=== PATIENT | female | born 1970 | race Caucasian/White ===

== ENCOUNTER → 2016-10-29 16:10 | Outpatient (CLI) | payer BC ==
[~2016-10-29 16:10] MED LIST: HYDROCODONE-APA1 TAB PO
[2016-12-02 13:04] VITALS: BMI 29.6
== END | disposition home or self-care (01) ==
LOC: D.MAMMO 08:30
DX: Z12.31 Encounter for screening mammogram for malignant neoplasm of breast (principal)

== ENCOUNTER → 2016-11-19 14:40 | Outpatient (CLI) | payer BC ==
[2016-12-02 13:04] VITALS: BMI 29.6
== END | disposition home or self-care (01) ==
LOC: D.MRI 14:40
DX: M51.36 Other intervertebral disc degeneration, lumbar region (principal)

== ENCOUNTER 2016-12-02 05:35 | Inpatient (IN) | payer BC ==
[2016-12-01 15:02] LABS: BASOPHILS 0.1 % (0.0-2.0); HEMATOCRIT 40.3 % (36.0-48.0); HEMOGLOBIN 13.4 g/dL (12-16); IMMATURE GRANULOCYTES 0.3 % (0-5); LYMPHOCYTES 21.5 % (15-50); MCH 31.1 pg (26.0-34.0); MCHC 33.3 g/dL (31.0-37.0); MCV 93.5 fL (80.0-100.0); MEAN PLATELET VOLUME 9.7 fL (7.4-10.4); MONOCYTES 7.4 % (2-11); NEUTROPHILS 69.7 % (40-80); PLATELET COUNT 285 10x3/uL (130-400); RBC 4.31 10x6/uL (4.00-5.40); RDW 12.7 % (11.5-14.5); WBC 6.9 10x3/uL (4.8-10.8)
[2016-12-01 15:10] LABS: CALC OSMOLALITY 280 mosm/kg (275-300); CALCIUM 9.2 mg/dL (8.5-10.1); CHLORIDE - SERUM 102 mmol/L (98-107); CREATININE - SERUM 0.7 mg/dL (0.6-1.3); GLUCOSE 111 mg/dL (74-106); POTASSIUM - SERUM 3.7 mmol/L (3.5-5.1); SODIUM 140 mmol/L (136-145); UREA NITROGEN 15 mg/dL (7-18); eGFR NON AFRICAN AMERICAN > 90 mL/min (90-120)
[2016-12-01 15:12] LABS: APPEARANCE CLEAR (CLEAR); COLOR YELLOW (YELLOW)
[2016-12-01 15:13] LABS: BILIRUBIN NEGATIVE (NEGATIVE); GLUCOSE NEGATIVE (NEGATIVE); KETONE NEGATIVE (NEGATIVE); LEUKOCYTE ESTERASE 2+ (NEGATIVE); NITRITE NEGATIVE (NEGATIVE); PROTEIN NEGATIVE (NEGATIVE); SPECIFIC GRAVITY 1.025 (1.005-1.020); UROBILINOGEN NORMAL (NORMAL)
[2016-12-01 15:17] LABS: WHITE CELLS - URINE 0-5 /hpf (0-5)
[2016-12-01 15:19] LABS: BACTERIA MODERATE /hpf (NONE SEEN); EPITHELIAL CELLS 0-5 /hpf (0-5); MUCUS <1+ /lpf (NONE SEEN); RED CELLS - URINE 0-5 /hpf (0-5)
[2016-12-02] VITALS (11 sets, daily range): BP systolic 88–109; BP diastolic 44–76; Ht 160 cm; Wt 75.9 kg
[~2016-12-02] VITALS: Ht 160 cm; Wt 75.9 kg
--- NOTE | ~2016-12-02 | DS ---
PATIENT:TORIE TRENT :68 MEDICAL RECORD: [id number] DISCHARGE SUMMARY ADMISSION DATE: 12/02/16 DISCHARGE DATE: 12/05/16 DATE OF ADMISSION: 12/02/2016 CHIEF COMPLAINT: Back pain. PRIMARY PROCEDURE: L5-S1 laminectomy. HOSPITAL COUSRSE AND TREATMENT: This 46-year-old female tolerated the above surgery without complications. Postoperatively, she received Ancef as a postop medication. Her pain was controlled with p.o. hydrocodone. Incision is clean, dry and intact. She moved all extremities equally. DISCHARGE DESTINATION: Home. FOLLOWUP: Within 10-14 days for wound check. She has been instructed to call should she have any problems. ACTIVITY: Ambulation as tolerated. No lifting greater than 4 pounds. TRANSINT:[id number] Voice Confirmation ID: [id number] DOCUMENT ID: [id number] Dictated By: SIMONE CABRERA I have interviewed/examined the above patient and agree with these documented findings. POPEYE BAUTISTA MD CC: [id number] DICTATION DATE: 12/31/16 0938 DATAPOWER CONSULTANT: 12/31/16 1100 DIS IN 12/05/16 [facility] [address] [place] [address]
--- NOTE | 2016-12-02 11:50 | NUR ---
RECEIVED TO ROOM
--- NOTE | 2016-12-02 11:50 | NUR ---
RECEIVED TO ROOM 2208 AT THIS TIME. VITAL SIGNS STABLE FOR PATIENT. FAMILY AT BEDSIDE. INCISION TO BACK WITH DRESSING C/D/I. SCD'S ON AND IN WORKING ORDER. ASSESSMENT AND HISTORY OBTAINED PER FLOWSHEET. DENIES PAIN AT THIS TIME. IV TO RIGHT HAND PATENT. CALL LIGHT IN REACH, SRX3 WITH BED IN LOWEST POSITION AND WHEELS LOCKED. DENIES NEEDS AT PRESENT. WILL CONTINUE WITH PLAN OF CARE.
--- NOTE | 2016-12-02 12:02 | NUR ---
NO NUMBNESS OR TINGLING NOTED EQUAL STRENGHTS BILATERALLY LOWER EXTREMETIES
--- NOTE | 2016-12-02 12:45 | NUR ---
PRN ZOFRAN ADMINISTERED PER ORDER FOR PT'S C/O NAUSEA WITHOUT EMESIS. DENIES PAIN AT THIS TIME. FAMILY REMAINS AT BEDSIDE. WILL CONTINUE WITH PLAN OF CARE.
--- NOTE | 2016-12-02 13:59 | NUR ---
Patient Name: TORIE TRENT Admission Status: Elective Accout number: [id number] Admission Date: 12-02-2016 : 1970 Admission Diagnosis: Attending: CANELO Current LOS: 1 Anticipated DC Date: 12-04-2016 Planned Disposition: Home Primary Insurance: [employer] [facility] Discharge Planning Comments: CM MET WITH PATIENT REGARDING D/C NEEDS AND PLANS. PATIENT STATED SHE LIVES WITH HER SPOUSE (SONNY) AND HE WILL DRIVE HER HOME AT DISCHARGE. PATIENT STATED THEY ARE 6 STEPS W/RAILS TO ENTER HOME AND NO STAIRS INSIDE. PATIENT STATED SHE IS INDEPENDENT WITH HER CARE AND HAS A WALKER AT HOME IF NEEDED. PATIENTS PCP IS DR. VALENZUELA AND PHARMACY IS [facility] ON [address] [place] [address]. PATIENT DENIES NEEDS FOR HOME HEALTH. CM WILL CONTINUE TO FOLLOW PATIENT WITH D/C NEEDS AND PLANS. PCP DR. BIANCA PYLE [address] [place] [address] [phone] SONNY (SPOUSE) [phone] [employer]: Milla Nam Is the patient Alert and Oriented? Yes 0 * How many steps to enter\exit or inside your home? 6 W/RAILS 0 * PCP DR. VALENZUELA 0 * Pharmacy [facility] ON [address] [place] [address] 0 * Preadmission Environment Home with Family 0 * ADLs Independent 0 * Equipment Walker 0 * List name and contact numbers for known caregivers / representatives who currently or will assist patient after discharge: SONNY (SPOUSE) [phone] 0 * Community resources currently utilized None 0 * Additional services required to return to the preadmission environment? Yes 0 * Can the patient safely return to the preadmission environment? Yes 0 * Has this patient been hospitalized within the prior 30 days at any hospital? No 0 Grand Total: 0
[2016-12-02 14:44] LABS: BASOPHILS 0 % (0.0-2.0); EOSINOPHILS 0 % (0-7); HEMOGLOBIN 11.1 g/dL (12-16); IMMATURE GRANULOCYTES 0.2 % (0-5); LYMPHOCYTES 3.5 % (15-50); MCH 30.8 pg (26.0-34.0); MCHC 32.6 g/dL (31.0-37.0); MCV 94.4 fL (80.0-100.0); MEAN PLATELET VOLUME 9.7 fL (7.4-10.4); MONOCYTES 2.6 % (2-11); NEUTROPHILS 93.7 % (40-80); PLATELET COUNT 247 10x3/uL (130-400); RDW 12.7 % (11.5-14.5)
[2016-12-02 15:00] LABS: CALC OSMOLALITY 285 mosm/kg (275-300); CALCIUM 8.2 mg/dL (8.5-10.1); CARBON DIOXIDE 25.5 mmol/L (21.0-32.0); CHLORIDE - SERUM 107 mmol/L (98-107); CREATININE - SERUM 0.7 mg/dL (0.6-1.3); GLUCOSE 131 mg/dL (74-106); POTASSIUM - SERUM 3.8 mmol/L (3.5-5.1); SODIUM 142 mmol/L (136-145); UREA NITROGEN 14 mg/dL (7-18); eGFR NON AFRICAN AMERICAN > 90 mL/min (90-120)
--- NOTE | 2016-12-02 15:14 | NUR ---
SCHEDULED MEDICATIONS ADMINISTERED AT THIS TIME WELL PRN NORCO FOR PAIN. ADMINISTERED ONE TAB INSTEAD OF TWO AT PT'S REQUEST. DENIES FURTHER NEEDS AT THIS TIME. SIGNIFICANT OTHER AT BEDSIDE. CALL LIGHT IN REACH, WILL CONTINUE WITH PLAN OF CARE.
--- NOTE | 2016-12-02 19:30 | NUR ---
PT RECEIVED SITTING UP IN BED VISITING WITH MULTIPLE FAMILY MEMBERS AT BED SIDE. ALERT AND ORIENTED X4. O2 @ 2L VIA NC IN PLACE. BREATH SOUNDS CLEAR BILATERALLY. ABD SOFT AND NONTENDER UPON PALPATION. BOWEL SOUNDS ACTIVE IN ALL FOUR QUADRANTS. TABOR CATHETER IN PLACE, CLEAR YELLOW RETURN NOTED. PT DENIES NEEDS AT THIS TIME. CALL LIGHT AND H2O IN PT REACH. BED IN LOW POSITION. SIDE RAILS UP X2. SCD'S ON.
[2016-12-03 01:00] VITALS: BP 93/55
--- NOTE | 2016-12-03 04:06 | NUR ---
PATIENT SLEEPING SUPINE IN BED. HOB 30 DEGREES. RR EVEN AND UNLABORED. 0 S/S OF DISTRESS. FAMILY AT BEDSIDE. CALL LIGHT WITHIN REACH.
[2016-12-03 06:48] VITALS: BP 111/57
--- NOTE | 2016-12-03 07:10 | NUR ---
PATIENT IN BED WITH EYES CLOSED RESTING QUIETLY AT THIS TIME. IV INTACT. CALL LIGHT WITHIN REACH.
--- NOTE | 2016-12-03 07:15 | NUR ---
REPORT RECEIVED FROM TINNING MACHINE SET UP OPERATOR NURSE. CALL LIGHT IN REACH.
[2016-12-03 07:54] VITALS: BP 108/65
--- NOTE | 2016-12-03 08:26 | NUR ---
ASSESSMENT COMPLETED. SCDs TO BLE. AM MEDS MEDS ADMINISTERED. NORCO PO BUT PATIENT ONLY WANTED HALF OF ONE. TABOR CLAMPED FOR URINE SPECIMEN. IV SL. FAMILY IN ROOM. CALL LIGHT IN REACH. WILL CONTINUE WITH PLAN OF CARE.
--- NOTE | 2016-12-03 10:05 | NUR ---
UNABLE TO OBTAIN URINE SAMPLE BECAUSE CLAMP WAS TAKEN OFF OF TABOR CATH TUBING.
[2016-12-03 11:33] VITALS: BP 103/65
--- NOTE | 2016-12-03 12:11 | NUR ---
URINE SPECIMEN COLLECTED FROM TABOR CATH USING ASEPTIC TECHNIQUE. SAMPLE SENT TO LAB.
[2016-12-03 12:47] LABS: APPEARANCE CLEAR (CLEAR); BILIRUBIN NEGATIVE (NEGATIVE); COLOR YELLOW (YELLOW); GLUCOSE NEGATIVE (NEGATIVE); KETONE NEGATIVE (NEGATIVE); LEUKOCYTE ESTERASE TRACE (NEGATIVE); NITRITE NEGATIVE (NEGATIVE); PROTEIN TRACE mg/dL (NEGATIVE); SPECIFIC GRAVITY 1.015 (1.005-1.020); UROBILINOGEN NORMAL (NORMAL)
[2016-12-03 12:48] LABS: BACTERIA NONE SEEN /hpf (NONE SEEN); EPITHELIAL CELLS 0-5 /hpf (0-5); RED CELLS - URINE 0-5 /hpf (0-5); WHITE CELLS - URINE 0-5 /hpf (0-5)
--- NOTE | 2016-12-03 14:09 | NUR ---
BRACE PLACED ON PATIENT PER TRENA EMPLOYEE AFTER DRSG WAS CHANGED.
--- NOTE | 2016-12-03 14:30 | NUR ---
TABOR CATH REMOVED WITH TIP INTACT PER STUDENT NURSE AND INSTRUCTOR.
--- NOTE | 2016-12-03 16:20 | NUR ---
DENIES NEEDS AT THIS TIME. CALL LIGHT IN REACH.
[2016-12-03 16:32] VITALS: BP 112/62
--- NOTE | 2016-12-03 17:55 | NUR ---
ASSISTED TO SIDE OF BED AND ASSISTED WITH STANDING UP. PATIENT'S PAIN HAS GONE UP TO A 10. NORCO AND NICOLAS PO. FIRST NORCO DROPPED ON FLOOR AND WITNESSED BY PATIENT AND . ASSISTED BACK TO BED.
--- NOTE | 2016-12-03 18:45 | NUR ---
NO CHANGES IN INITIAL ASSESSMENT. CALL LIGHT IN REACH. STATES PAIN IN NOW ONLY A 2. AT BEDSIDE. WILL CONTINUE WITH PLAN OF CARE.
[2016-12-03 19:00] VITALS: BP 90/52
--- NOTE | 2016-12-03 20:00 | NUR ---
PT RECEIVED SITTING LAYING IN BED, VISITING WITH MULTIPLE FAMILY MEMBERS. NO S/S OF DISTRESS NOTED AT THIS TIME. PT IS ALERT AND ORIENTED X4. RESPIRATIONS EVEN AND UNLABORED. PT HAS NOT YET VOIDED SINCE REMOVAL OF TABOR. IV TO RIGHT HAND, CURRENTLY SALINE LOCKED NOTED AT THIS TIME. PT STATES PAIN IS A 2 AT THIS TIME, DENIES NEEDS. CALL LIGHT AND H2O IN PT REACH. BED IN LOW POSITION. SIDE RAILS UP X2.
--- NOTE | 2016-12-03 22:00 | NUR ---
PT STATES VOIDING WITH NO PROBLEMS X1.
--- NOTE | 2016-12-04 02:00 | NUR ---
PT IN BED WITH NO DISTRESS. RESPIRATIONS ARE EVEN AND UNLABORED. SIDE RAILS X 2. BED LOW. CALL LIGHT IN REACH.
--- NOTE | 2016-12-04 07:25 | NUR ---
PATIENT RECEIVED ALERT IN LOW [place] POSITION. RESPIRATIONS EVEN AND UNLABORED. SIDE RAILS UP X2. BED IN LOW POSITION. CALL LIGHT IN REACH. FAMILY PRESENT. DENIES NEEDS.
--- NOTE | 2016-12-04 08:14 | NUR ---
ALERT IN BED WITH FAMILY PRESENT. NO SIGNS OF DISTRESS NOTED. SCHEDULED MEDICATION ADMINISTERED. DENIES FURTHER NEEDS. SIDE RAILS UP X2. BED IN LOW POSITION. CALL LIGHT IN REACH.
[2016-12-04 08:40] VITALS: BP 110/67
--- NOTE | 2016-12-04 08:59 | NUR ---
C/O NAUSEA AND PAIN /10. ZOFRAN AND NORCO PER PRN ORDERS. NO FURTHER NEEDS. SIDE RAILS UP X2. BED IN LOW POSITION. CALL LIGHT IN REACH.
--- NOTE | 2016-12-04 11:45 | NUR ---
ALERT IN BED VISITING WITH GUESTS. NO SIGNS OF DISTRESS NOTED. RATES PAIN 2/10. STATES NAUSEA IS BETTER. NO NEEDS VOICED. SIDE RAILS UP X2. BED IN LOW POSITION. CALL LIGHT IN REACH.
[2016-12-04 12:34] VITALS: BP 110/69
--- NOTE | 2016-12-04 14:35 | NUR ---
ALERT IN BED. NO SIGNS OF DISTRESS NOTED. FAMILY PRESENT. RATES PAIN 5/10. SIDE RAILS UP X2. BED IN LOW POSITION. CALL LIGHT IN REACH.
--- NOTE | 2016-12-04 15:45 | NUR ---
UP AMBULATING IN HALLWAY WITH FAMILY. NO SIGNS OF DISTRESS NOTED. WILL CONTINUE TO MONITOR.
[2016-12-04 16:34] VITALS: BP 107/63
--- NOTE | 2016-12-04 18:00 | NUR ---
ALERT IN BED WATCHING TV. NO SIGNS OF DISTRESS NOTED. DENIES NEEDS. SIDE RAILS UP X2. BED IN LOW POSITION. CALL LIGHT IN REACH.
--- NOTE | 2016-12-04 19:49 | NUR ---
PATIENT RESTING IN BED WITH GUESTS AT BEDSIDE AND REQUESTED PAIN MEDICATION WITH HER 2100 MEDS. BED IN LOWEST POSITION AND CALL LIGHT WITHIN REACH. ENCOURAGED PATIENT TO CALL IF SHE HAS FURTHER NEEDS.
[2016-12-04 21:36] VITALS: BP 95/55
--- NOTE | 2016-12-05 07:30 | NUR ---
PATIENT RECEIVED ALERT IN LOW [place] POSITION. RESPIRATIONS EVEN AND UNLABORED. FAMILY PRESENT. DENIES NEEDS. SIDE RAILS UP X3. BED IN LOW POSITION. CALL LIGHT IN REACH.
[2016-12-05 07:53] VITALS: BP 113/69
--- NOTE | 2016-12-05 08:35 | NUR ---
PATIENT ALERT IN BED WITH FAMILY PRESENT. SCHEDULED MEDICATION ADMINISTERED. SIDE RAILS UP X2. BED IN LOW POSITION. CALL LIGHT IN REACH. DENIES NEEDS.
--- NOTE | 2016-12-05 10:40 | NUR ---
ALERT IN BED WITH FAMILY PRESENT. NO SIGNS OF DISTRESS NOTED. DRESSING TO LOWER BACK SURGICAL SITE CHANGED. 9 YOGESH INTACT. NO REDNESS, INFLAMMATION OR DRAINAGE NOTED. NEW BORDERED GAUZE PLACED OVER INCISION
--- NOTE | 2016-12-05 11:15 | NUR ---
UP AMBULATING IN HALLWAY WITH FAMILY. NO SIGNS OF DISTRESS NOTED.
[2016-12-05 12:36] VITALS: BP 112/72
--- NOTE | 2016-12-05 13:30 | NUR ---
IV TO RIGHT HAND D/C WITH CATH TIP INTACT. SITE COVERED WITH GAUZE AND BANDAID. D/C TEACHING AND WRITTEN PRESCRIPTION PROVIDED. DENIES QUESTIONS
--- NOTE | 2016-12-05 14:04 | NUR ---
PATIENT D/C HOME WITH FAMILY. TRANSFERRED DOWNSTAIRS VIA WHEELCHAIR WITH STAFF
--- NOTE | 2016-12-20 12:27 | OP ---
PATIENT NAME: TORIE TRENT MEDICAL RECORD: [id number] :68 LOCATION:D.MS [id number] ADMISSION DATE:12/02/16 SURGEON: POPEYE ACKERMAN MD DATE OF OPERATION: 12/02/2016 DIAGNOSIS: L4-L5 and L5-S1 degenerative disc disease with nerve root compression and segmental instability. PROCEDURE: 1. L4-L5 and L5-S1 facetectomy and radical discectomy. 2. L4-L5 and L5-S1 transforaminal lumbar interbody fusion. 3. L4, L5, and S1 pedicle fixation and instrumentation. 4. L4, L5, and S1 posterolateral fusion with autologous bone plus hydroxyapatite soaked with bone marrow aspirate. 5. C-arm imaging and localization in the operating room. SURGEON: Popeye Ackerman MD TIRE SERVICE TECHNICIAN: None. ESTIMATED BLOOD LOSS: 150 cc. SUMMARY: The patient was taken to the operating room and after an adequate level of general anesthetic, was prepped and draped on gel pads in a prone position in the operating room. Following this, localization was carried out with a spinal needle and the adipose tissue in the back and a C-arm fluoroscope to localize the placement of the incision. An incision was then made to the left of the spinous processes of L4, L5 and S1 with a 10 blade after infiltrating with 1:400,000 of epinephrine and 0.5% lidocaine. Dissection was carried out down to the lumbodorsal fascia. The muscular attachments to the spinous processes of L4, L5 and S1 were then divided with cutting cautery, a Hernandez elevator was then used to remove the muscular attachments to the facet joints on the left side. Following this, facetectomy was performed with an Adson and Leksell rongeur at L4-L5 and L5-S1 and the bone fragments were retained to be used in the bone mill for use in the fusion. When this was completed, a laminectomy was performed at L4-L5 and L5-S1 using a Cloward punch, exposing the neural elements. Dissection was carried out underneath the traversing nerve root and inferior to the exiting nerve root, exposing the annulus at L4-L5 and L5-S1. The osteophyte located inferiorly was then removed with an 8-mm osteotome. A pituitary was used to remove the bone fragments and the portions of the annulus after this maneuver. Following this, a series of disc space scrapers were used in the interspaces to remove the disc material and disc material was completely removed from the L4-L5 and L5-S1 interspace with pituitaries and upbiting pituitaries as well as curettes. After completing this, a trial was used to determine that an 11-mm Tritanium cage would best fit in the interspace at L4-L5. This cage was then selected using a 23 mm in length cage because the patient was fairly small. The cage was then packed with autologous bone. Autologous bone was also placed in the disc space using a bone funnel and then the cage was tapped into place medially and anteriorly. When this had been completed, the L5-S1 space was measured at 7 mm after scraping and cleaning the disc space of disc material and cartilaginous material. The 7-mm cage was packed using a 23 mm cage again and inserted into the interspace and tapped into position anteriorly and medially. Concluding this, pedicle screws were then placed in the pedicles on the left side at L4, L5 and S1 using a Jamshidi needle to penetrate the pedicle and then inserting a K-wire into the OPERATIVE REPORT [id number] TORIE TRENT vertebral body at L4, L5 and S1 on the left. Bone marrow was aspirated and this was used with the autologous bone and the hydroxyapatite to make a material to encourage posterolateral fusion. The pedicles were then tapped with a 4.5 mm tap and a C-arm fluoroscope was used throughout this procedure to determine the proper placement of pedicle and into the vertebral body. A 5.5 x 45 mm screws were then placed in the pedicles of L4 and L5 and then a 6.5 x 35 mm screw was placed in the sacrum. All the screws were ES2 screws with the flanges and were all applied with an MIS technique through the fascia. Following this, a 70-mm shant was then selected with a lordotic curve and inserted with an MIS technique using the Dials instrumentation into the ES2 screws and then the cap locks were screwed down on the flanges down to the shant and all were given a hand tightening. A C-arm image was then made anteriorly and laterally to determine that everything was in good position. With this being the case, the screws were then torqued to the appropriate level and then the flanges were removed from the heads of the screws. The wound was then irrigated with an antibiotic solution thoroughly and the posterolateral fusion was performed with the autologous bone plus the hydroxyapatite material. Following this, the wound was irrigated with antibiotic solution and the fascia was closed with 2-0 Dexon, the subcutaneous tissue with 2-0 Dexon, the superficial subcutaneous tissue with 3-0 Dexon and the skin was finally closed with skin cheri. No drain was placed as there was no significant bleeding. The patient tolerated this procedure well and was taken to recovery in stable condition. TRANSINT:[id number] Voice Confirmation ID: [id number] DOCUMENT ID: [id number] POPEYE ACKERMAN MD at 1227 CC: [id number] DICTATION DATE: 12/02/16 110 VP LEGAL AFFAIRS: 12/02/16 1352 DIS IN 12/05/16 [facility] [id number] [place] [address]
== END 2016-12-05 14:04 | disposition home or self-care (01) | DRG 460 ==
LOC: D.OPS 05:35 → D.MS 08:46 → D.OPS 10:58 → D.MS 12-05 14:04
PROVIDERS: ADMIT Neurological Surgery
PROC: 0SG30A1 (ICD-10-PCS; 2016-12-02)
PROC: 0ST20ZZ Resection of Lumbar Vertebral Disc, Open Approach (ICD-10-PCS; 2016-12-02)
PROC: 0ST40ZZ Resection of Lumbosacral Disc, Open Approach (ICD-10-PCS; 2016-12-02)
PROC: 0SG00A1 (ICD-10-PCS; principal; 2016-12-02 07:30)
DX: M51.36 Other intervertebral disc degeneration, lumbar region (principal); M51.37 Other intervertebral disc degeneration, lumbosacral region; M53.2X6 Spinal instabilities, lumbar region; M53.2X7 Spinal instabilities, lumbosacral region; M25.78 Osteophyte, vertebrae

== ENCOUNTER → 2016-12-31 08:35 | Outpatient (CLI) | payer BC ==
[2016-12-02 13:04] VITALS: BMI 29.6
== END | disposition home or self-care (01) ==
LOC: D.RAD 08:30
DX: M43.26 Fusion of spine, lumbar region (principal)

== ENCOUNTER → 2017-02-25 08:26 | Outpatient (CLI) | payer BC ==
[2016-12-02 13:04] VITALS: BMI 29.6
== END | disposition home or self-care (01) ==
LOC: D.RAD 08:26
DX: Z48.811 Encounter for surgical aftercare following surgery on the nervous system (principal)

== ENCOUNTER → 2017-12-02 21:54 | Outpatient (CLI) | payer BC ==
[2016-12-02 13:04] VITALS: BMI 29.6
== END | disposition home or self-care (01) ==
LOC: D.MAMMO 13:30
DX: Z12.31 Encounter for screening mammogram for malignant neoplasm of breast (principal)

== ENCOUNTER → 2018-05-04 13:01 | Outpatient (CLI) | payer BC ==
[2016-12-02 13:04] VITALS: BMI 29.6
[2018-05-04 14:01] LABS: BASOPHILS 0.2 % (0-2); EOSINOPHILS 1.5 % (0-7); HEMOGLOBIN 13.4 g/dL (12-16); IMMATURE GRANULOCYTES 0.2 % (0-5); MCH 31.2 pg (26.0-34.0); MCHC 33.5 g/dL (31.0-37.0); MCV 93.2 fL (80.0-100.0); MEAN PLATELET VOLUME 9.6 fL (7.4-10.4); MONOCYTES 7.6 % (2-11); NEUTROPHILS 69.5 % (40-80); PLATELET COUNT 265 10x3/uL (130-400); RBC 4.29 10x6/uL (4.00-5.40); RDW 12.6 % (11.5-14.5); WBC 6.6 10x3/uL (4.8-10.8)
[2018-05-04 15:06] LABS: ERYTHROCYTE SEDIMENTATION RATE 31 mm/hr (0-20)
== END | disposition home or self-care (01) ==
LOC: D.CT 13:01
PROVIDERS: Internal Medicine Gastroenterology
DX: R10.9 Unspecified abdominal pain (principal); R14.3 Flatulence; R14.0 Abdominal distension (gaseous)

== ENCOUNTER → 2018-06-02 14:59 | Outpatient (CLI) | payer BC ==
[2016-12-02 13:04] VITALS: BMI 29.6
[2018-06-02 15:29] LABS: BASOPHILS 0.2 % (0-2); EOSINOPHILS 1.2 % (0-7); HEMATOCRIT 42.2 % (36.0-48.0); HEMOGLOBIN 14.4 g/dL (12-16); IMMATURE GRANULOCYTES 0.2 % (0-5); MCH 31.3 pg (26.0-34.0); MCHC 34.1 g/dL (31.0-37.0); MCV 91.7 fL (80.0-100.0); MEAN PLATELET VOLUME 9.6 fL (7.4-10.4); MONOCYTES 7.9 % (2-11); NEUTROPHILS 76.5 % (40-80); PLATELET COUNT 248 10x3/uL (130-400); RDW 12.6 % (11.5-14.5); WBC 9.4 10x3/uL (4.8-10.8)
[2018-06-02 16:33] LABS: ERYTHROCYTE SEDIMENTATION RATE 10 mm/hr (0-20)
== END | disposition home or self-care (01) ==
LOC: D.CT 14:59
PROVIDERS: Internal Medicine Gastroenterology
DX: R10.9 Unspecified abdominal pain (principal); R14.3 Flatulence; R14.0 Abdominal distension (gaseous); Z87.19 Personal history of other diseases of the digestive system

== ENCOUNTER → 2018-06-06 10:45 | Outpatient (CLI) | payer BC ==
[2016-12-02 13:04] VITALS: BMI 29.6
[2018-06-06 11:42] LABS: CALC OSMOLALITY 275 mosm/kg (275-300); CALCIUM 9.3 mg/dL (8.5-10.1); CARBON DIOXIDE 26.1 mmol/L (21.0-32.0); CHLORIDE - SERUM 104 mmol/L (98-107); CREATININE - SERUM 0.8 mg/dL (0.6-1.3); GLUCOSE 95 mg/dL (74-106); POTASSIUM - SERUM 3.8 mmol/L (3.5-5.1); SODIUM 139 mmol/L (136-145); UREA NITROGEN 6 mg/dL (7-18); eGFR NON AFRICAN AMERICAN 81 mL/min (90-120)
== END | disposition home or self-care (01) ==
LOC: D.LAB 10:45
PROVIDERS: Internal Medicine Gastroenterology
DX: R30.0 Dysuria (principal)

== ENCOUNTER → 2018-10-27 07:59 | Outpatient (CLI) | payer BC ==
[2016-12-02 13:04] VITALS: BMI 29.6
== END | disposition home or self-care (01) ==
LOC: D.US 07:59
DX: R10.9 Unspecified abdominal pain (principal)

== ENCOUNTER → 2018-12-07 08:42 | Outpatient (CLI) | payer BC ==
[2016-12-02 13:04] VITALS: BMI 29.6
== END | disposition home or self-care (01) ==
LOC: D.MAMMO 08:42 → D.NM 08:42 → D.MAMMO 09:30 → D.NM 12-08 09:30
PROVIDERS: ATTEND Internal Medicine Gastroenterology
DX: R10.13 Epigastric pain (principal)

== ENCOUNTER 2018-12-08 19:00 | Outpatient (CLI) | payer BC ==
[2016-12-02 13:04] VITALS: BMI 29.6
== END 2018-12-08 23:59 | disposition home or self-care (01) ==
LOC: D.MAMMO 19:00
PROVIDERS: ATTEND Internal Medicine Gastroenterology
DX: Z12.31 Encounter for screening mammogram for malignant neoplasm of breast (principal)

== ENCOUNTER 2018-12-28 06:55 | Day surgery (SDC) | payer BC ==
[2018-12-26 16:36] LABS: BASOPHILS 0.6 % (0-2); EOSINOPHILS 5.4 % (0-7); HEMATOCRIT 38.9 % (36.0-48.0); HEMOGLOBIN 13.2 g/dL (12-16); LYMPHOCYTES 31.2 % (15-50); MCH 31.4 pg (26.0-34.0); MCHC 33.9 g/dL (31.0-37.0); MCV 92.4 fL (80.0-100.0); MEAN PLATELET VOLUME 9.7 fL (7.4-10.4); NEUTROPHILS 54.8 % (40-80); PLATELET COUNT 281 10x3/uL (130-400); RBC 4.21 10x6/uL (4.00-5.40); RDW 12.7 % (11.5-14.5); WBC 5.2 10x3/uL (4.8-10.8)
[2018-12-26 16:46] LABS: CALC OSMOLALITY 280 mosm/kg (275-300); CALCIUM 9.3 mg/dL (8.5-10.1); CARBON DIOXIDE 24.6 mmol/L (21.0-32.0); CHLORIDE - SERUM 106 mmol/L (98-107); CREATININE - SERUM 0.7 mg/dL (0.6-1.3); GLUCOSE 102 mg/dL (74-106); POTASSIUM - SERUM 3.7 mmol/L (3.5-5.1); SODIUM 141 mmol/L (136-145); UREA NITROGEN 13 mg/dL (7-18); eGFR NON AFRICAN AMERICAN > 90 mL/min (90-120)
[2018-12-28 07:10] VITALS: BP 120/73; BMI 32.4
[2018-12-28] MEDS ORDERED: HYDROCODON-ACE1 EA10 PO (09:43)
--- NOTE | 2019-01-03 14:40 | OP ---
PATIENT NAME: TORIE TRENT MEDICAL RECORD: [id number] :68 LOCATION:D.OPS ADMISSION DATE: SURGEON: CRISTIAN POWERS MD DATE OF OPERATION: 12/28/2018 PREOPERATIVE DIAGNOSIS: Biliary dyskinesia. POSTOPERATIVE DIAGNOSIS: Biliary dyskinesia. PROCEDURE: Laparoscopic cholecystectomy. SURGEON: Cristian Powers MD REPORT OF PROCEDURE: The patient's abdomen was prepped and draped in sterile fashion. A cutdown was made on the superior aspect of the umbilicus, 0 Vicryls were placed in the fascia bilaterally and the fascia was incised with 15-blade. I then bluntly entered the peritoneal cavity and placed a 12-mm Julia port. Under direct visualization, a 5-mm trocar was placed in the epigastrium and 2 more 5-mm trocars were placed in the right subcostal region. The gallbladder was grasped and elevated. The cystic artery and cystic duct were dissected free and these were clipped proximally and distally and ligated in standard fashion. The gallbladder was taken off the liver bed using electrocautery and placed into the right upper quadrant. Any bleeding from the liver bed was then treated with electrocautery. We irrigated out the right upper quadrant and assured there was no sign of any bleeding or bile leakage. At this point, the ports and insufflation were then removed and the gallbladder was taken out through the umbilicus. The umbilical fascia was closed with interrupted 0 Vicryls times 3. The wounds were then irrigated out with normal saline, infused with 10 mL of 0.25% Marcaine with epinephrine. The skin incisions were all closed with subcutaneous 5-0 Monocryl and dressed appropriately. COMPLICATIONS: None. CONDITION: Stable. ANESTHESIA: General endotracheal and local. BLOOD LOSS: Minimal. TRANSINT:[id number] Voice Confirmation ID: [id number] DOCUMENT ID: [id number] CRISTIAN POWERS MD at 1440 CC: JOANIE SIMMONS MD [id number] DICTATION DATE: 12/28/18 0948 IT PROFESSIONAL: 12/28/18 1150 [facility] 12/28/18 [facility] [address] [place] [address]
== END 2018-12-28 11:30 | disposition home or self-care (01) ==
LOC: D.OPS 06:55
PROVIDERS: ATTEND Surgery
DX: K82.4 Cholesterolosis of gallbladder (principal); Z01.812 Encounter for preprocedural laboratory examination

== ENCOUNTER → 2019-07-31 07:50 | Outpatient (CLI) | payer BC ==
[~2019-07-31 07:50] MED LIST changes: +HYDROCODON-ACE1 EA10 PO
--- NOTE | 2019-08-03 15:28 | ST ---
PATIENT:TORIE TRENT MEDICAL RECORD: [id number] SEX: F LOCATION:[facility] ORDER #: ADMISSION DATE: 07/31/19 AGE OF PATIENT: 49 REFERRING PHYSICIAN: INTERPRETING PHYSICIAN: JUAN LUIS ESCOBAR MD DATE OF SERVICE: 07/31/2019 PROCEDURE: Nuclear stress testing. INDICATION: Chest pain. She was exercised on standard Alexsander protocol for 8 minutes achieving 85% maximum target heart rate response with 33 mCi of sestamibi injected at peak stress, 11 mCi used previously for rest images. FINDINGS: Gated SPECT reveals preserved ejection fraction at 73% with good wall motion and thickening and brightening throughout all segments. SPECT imaging Cardiolite was used as myocardial fusion agent. There is homogeneous uptake throughout all segments at rest and stress with no evidence of inducible ischemia or previous infarction. OVERALL IMPRESSION: 1. This is a normal nuclear stress test with no evidence of inducible ischemia or previous infarction. 2. Gated SPECT reveals a preserved ejection fraction at 73%. In this patient with ongoing symptomatology, the current scan does not suggest the presence of hemodynamically significant coronary artery disease. Evaluate noncardiac etiology of chest pain. TRANSINT:[id number] Voice Confirmation ID: [id number] DOCUMENT ID: [id number] JUAN LUIS ESCOBAR MD at 1528 CC: JOANIE SIMMONS MD [id number] DICTATION DATE: 08/01/19 1251 911 OPERATOR: 08/01/19 2321 DEP CLI 07/31/[address] [address]
== END | disposition home or self-care (01) ==
LOC: D.HCCARDIO 07:50
PROVIDERS: ATTEND Internal Medicine Interventional Cardiology
DX: R07.9 Chest pain, unspecified (principal)

== ENCOUNTER 2020-06-06 11:30 | Outpatient (CLI) | payer BC | END 2020-06-06 13:00 | disposition home or self-care (01) | LOC: D.MAMMO 11:30 | PROVIDERS: ATTEND Obstetrics & Gynecology | DX: Z12.31 Encounter for screening mammogram for malignant neoplasm of breast (principal) ==